=== PATIENT | male | born 1970 | race Caucasian/White ===

== ENCOUNTER 2020-06-18 11:43 | Emergency (ER) | payer OTHER, BC ==
[2020-06-18] MEDS ORDERED: Acetaminophen/oxyCODONE 325-5 MG Tab PO ONE (11:49)
[2020-06-18] MEDS ORDERED: Diphtheria,Pertussis(Acell),Tetanus Vaccine 0.5 ML Syringe IM ONE (11:54)
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
[2020-06-18] MEDS ORDERED: Bacitracin Oint 1 GM U/D Packet TOP ONE ×2 (13:06→13:10)
[2020-06-18] MEDS ORDERED: Lidocaine 2% Viscous Solution 15 ML Cup TOP ONE (13:08)
[2020-06-18] MEDS ORDERED: Bacitracin Oint 28.35 GM Tube ONE (13:12)
[2020-06-18] MEDS ORDERED: Bacitracin Oint 28.35 GM Tube TOP ONE (13:16)
== END 2020-06-18 13:36 | disposition home or self-care (01) ==
LOC: MW.ED 11:43
DX: T23.261A Burn of second degree of back of right hand, initial encounter (principal); T23.262A Burn of second degree of back of left hand, initial encounter; Z23 Encounter for immunization; W40.8XXA Explosion of other specified explosive materials, initial encounter; Y99.0 Civilian activity done for income or pay
CPT/HCPCS: 16020; 90471; 99284; A9270